=== PATIENT | male | born 1985 | race Caucasian/White ===

== ENCOUNTER 2017-10-07 12:39 | Emergency (ER) | payer SELFPAY ==
--- NOTE | 2017-10-07 13:28 | CPEKG ---
Heart Rate: 70 RR Interval: 857 P-R Interval: 108 QRSD Interval: 92 QT Interval: 412 QTC Interval: 445 P [place]: -1 QRS [place]: 90 T Wave [place]: 40 EKG Severity - BORDERLINE ECG - EKG Impression: SINUS RHYTHM EKG Impression: SHORT ND INTERVAL, ACCELERATED AV CONDUCTION EKG Impression: BORDERLINE RIGHT AXIS DEVIATION Electronically Signed By: Margarito Burt 07-Oct-2017 20:56:21
--- NOTE | 2017-10-07 14:21 | EDPHY ---
H & P Stated Complaint: bicuspid valve issues- needs replaced- dizziness worsening over 5 days Time Seen by Provider: 10/07/17 14:18 HPI/ROS: HPI: This is a 32-year-old male who presents with Chief Complaint: Lightheadedness Location:head Quality: Dizziness Duration: 1 week Signs and Symptoms: no shortness of breath at rest, no shortness of breath on exertion, no cough, no chest pain, no palpitations, no lower extremity edema, no wheezing, no orthopnea, no paroxysmal nocturnal dyspnea, no fever, no injury/ trauma, no hemoptysis, no carpal pedal spasms Timing: Worse today Severity: Moderate Context: Patient has a history of a bicuspid valve diagnosed at 6 months of age , last echocardiogram was 5 months ago, does not currently have a sheep herder intact. Patient reports for the last week when he moves his head side to side he feels lightheaded and that the room is spinning at times. The symptoms also occurred while he change positions from sitting to standing. Denies any sinus congestion/sinus pressure/rhinorrhea. Girlfriend does report that he has an inner ear problem at which patient does not know which she is talking about. During his work meeting today, patient forgot what he was saying in the middle of his meeting today. The symptoms only lasted for a few seconds. Patient is extremely anxious and worried that this may be related to his heart. Patient recently eloped and is under considerable stress. Has never had any surgery on his valve or problems since he was a baby. Modifying Factors: None Comment: ROS: see HPI Constitutional: No fever, no chills, no weight loss Eyes: No blurred vision Respiratory: No shortness of breath, no cough Cardiovascular: No chest pain, no palpitations, no lower extremity edema Gastrointestinal: No nausea, no vomiting, no diarrhea Genitourinary: No dysuria Extremities: No myalgias Neurologic: No weakness, no numbness Skin: No rashes Hematologic: No bruising, no bleeding MEDICAL/SURGICAL/SOCIAL HISTORY: Medical history: asthma, congenital bicuspid valve abnormality Surgical history: Denies Social history: . Employed. CONSTITUTIONAL: Slightly anxious well-appearing adult white male, awake and alert, no obvious distress HEENT: Atraumatic and normocephalic, PERRL, EOMI. Nares patent; no rhinorrhea; no nasal mucosal edema. Tympanic membranes clear. Oropharynx clear, no exudate and moist pink mucosa. Airway patent. No lymphadenopathy. No meningismus. Cardiovascular: Normal S1/S2, regular rate, regular rhythm, without murmur rub or gallop. PULMONARY/CHEST: Symmetrical and nontender. Clear to auscultation bilaterally. Good air movement. No accessory muscle usage. ABDOMEN: Soft, nondistended, nontender, no rebound, no guarding, no peritoneal signs, no masses or organomegaly. No CVAT. EXTREMITIES: 2/2 pulses, strength 5/5, no deformities, no clubbing, no cyanosis or edema. NEUROLOGICAL: no focal neuro deficits. GCS 15. Dizziness reproduced with Krebs- Hallpike maneuver. SKIN: Warm and dry, no erythema. no rash. Good capillary refill. Source: Patient, Family Exam Limitations: No limitations - Medical/Surgical History Hx Asthma: Yes Hx Chronic Respiratory Disease: No Hx Diabetes: No Hx Cardiac Disease: Yes Hx Renal Disease: No Hx Cirrhosis: No Hx Alcoholism: No Hx HIV/AIDS: No Hx Splenectomy or Spleen Trauma: No Other PMH: asthma, congenital bicuspid valve abnormality - Social History Smoking Status: Never smoked Constitutional: Initial Vital Signs Temperature (C) 36.5 C 10/07/17 12:50 Heart Rate 83 10/07/17 12:50 Respiratory Rate 16 10/07/17 12:50 Blood Pressure 149/106 H 10/07/17 12:50 O2 Sat (%) 99 10/07/17 12:50 O2 Delivery Mode Room Air Allergies/Adverse Reactions: No Known Allergies Allergy (Unverified 10/07/17 12:54) Home Medications: Medication Instructions Recorded Aspirin 325 mg (*) 10/07/17 Fluticasone Nasal [Flonase Nasal 2 sprays NASAL DAILY #1 mdi 10/07/17 [place] (RX)] Levocetirizine Dihydrochloride 5 mg PO DAILY #30 tablet 10/07/17 [Xyzal] Meclizine HCl [Meclizine HCl 25 mg 25 mg PO Q12 PRN #6 tab 10/07/17 (RX,OTC)] Medical Decision Making - Diagnostics EKG Interpretation: 12 lead EKG: Indication: Dizziness Rhythm: Normal sinus rhythm, rate 70 beats per minute [place]: Normal Intervals: Normal QRS: Normal ST segments: Normal INTERPRETATION: No acute ischemic changes The 12 lead EKG was interpreted by myself and with attending. Imaging Results: Imaging Impressions Head CT 10/07/17 14:18 Impression: No acute intracranial findings. If symptoms persist and clinical suspicion warrants, consider MRI. Findings discussed with Magy Jimenez 10/07/2017 at 14:49. ED Course/Re-evaluation: EKG, head CT scan, labs ordered Vital signs reviewed and stable upon arrival. 1452: Called by radiologist who advised that head CT scan shows no acute intracranial process. + mild mucosal thickening is present in the paranasal sinuses. 1510: Labs reviewed. No signs of leukocytosis/anemia/SORAYA/elevated LFTs/ electrolyte imbalance/ACS/CHF/CVA/OM. Patient now reports that he has an allergy to cats and has a cat that sleeps in his room. patient is to follow up and establish care with primary care provider and Cardiology. This patient was seen under the supervision of my secondary supervising physician. I evaluated care for this patient independently. Discussed this patient with Dr. Burt who did not see the patient. Differential Diagnosis: Dizziness including but not limited to peripheral and central causes of vertigo , orthostatic causes including dehydration, and blood loss. - Data Points Laboratory Results: Laboratory Results 10/07/17 13:25 10/07/17 13:25 10/07/17 10/07/17 13:25 13:25 WBC 8.52 10^3/uL 10^3/uL (3.80-9.50) RBC 5.40 10^6/uL 10^6/uL (4.40-6.38) Hgb 16.1 g/dL g/dL (13.7-17.5) Hct 46.7 % % (40.0-51.0) MCV 86.5 fL fL (81.5-99.8) MCH 29.8 pg pg (27.9-34.1) MCHC 34.5 g/dL g/dL (32.4-36.7) RDW 12.7 % % (11.5-15.2) Plt Count 261 10^3/uL 10^3/uL (150-400) MPV 9.9 fL fL (8.7-11.7) Neut % (Auto) 70.1 % % (39.3-74.2) Lymph % (Auto) 20.8 % % (15.0-45.0) Dane % (Auto) 7.6 % % (4.5-13.0) Eos % (Auto) 0.4 % L % (0.6-7.6) Baso % (Auto) 0.6 % % (0.3-1.7) Nucleat RBC Rel Count 0.0 % % (0.0-0.2) Absolute Neuts (auto) 5.98 10^3/uL 10^3/uL (1.70-6.50) Absolute Lymphs (auto) 1.77 10^3/uL 10^3/uL (1.00-3.00) Absolute Monos (auto) 0.65 10^3/uL 10^3/uL (0.30-0.80) Absolute Eos (auto) 0.03 10^3/uL 10^3/uL (0.03-0.40) Absolute Basos (auto) 0.05 10^3/uL 10^3/uL (0.02-0.10) Absolute Nucleated RBC 0.00 10^3/uL 10^3/uL (0-0.01) Immature Gran % 0.5 % % (0.0-1.1) Immature Gran # 0.04 10^3/uL 10^3/uL (0.00-0.10) Sodium 141 mEq/L mEq/L (135-145) Potassium 3.9 mEq/L mEq/L (3.5-5.2) Chloride 103 mEq/L mEq/L (97-110) Carbon Dioxide 22 mEq/l mEq/l (22-31) Anion Gap 16 mEq/L mEq/L (8-16) BUN 13 mg/dL mg/dL (7-23) Creatinine 1.2 mg/dL mg/dL (0.7-1.3) Estimated GFR > 60 Glucose 96 mg/dL mg/dL (70-100) Calcium 9.8 mg/dL mg/dL (8.5-10.4) Troponin I < 0.012 ng/mL ng/mL (0.000-0.034) NT-Pro-B Natriuret Pep 12 pg/mL pg/mL (0-125) Departure - Departure Disposition: Home, Routine, Self-Care Clinical Impression: Paranasal sinus disease, Environmental allergies Condition: Good Instructions: Sinusitis (ED), Allergies (ED), Dizziness (ED) Additional Instructions: Please establish primary care as well as Cardiology within the next 1-2 weeks. You would benefit from an outpatient echocardiogram. Please remove the cat from your bedroom. Take [id number] antihistamine or I have provided prescription for Xyzal. Use Flonase 1 spray each nostril daily. Use Meclizine every 12 hr as needed for dizziness. Consume a minimum of 8-10 glasses of water or electrolyte fluid replacement drinks that include Gatorade, Powerade, Pedialyte. Referrals: Savannah Casillas MD [Medical Doctor] - As per Instructions Nikkie Max MD [Medical Doctor] - As per Instructions Prescriptions: Fluticasone Nasal [Flonase Nasal [place] (RX)] 2 sprays NASAL DAILY #1 mdi Levocetirizine Dihydrochloride [Xyzal] 5 mg PO DAILY #30 tablet Meclizine HCl [Meclizine HCl 25 mg (RX,OTC)] 25 mg PO Q12 PRN #6 tab PRN Reason: Dizziness
[2017-10-07 14:54] VITALS: BP 132/78
[2017-10-07 14:57] LABS: PLATELET COUNT 261 10^3/uL (150-400)
== END 2017-10-07 15:24 | disposition home or self-care (01) ==
DX: J32.9 Chronic sinusitis, unspecified (principal); J30.2 Other seasonal allergic rhinitis; Z79.82 Long term (current) use of aspirin